=== PATIENT | female | born 1950 | race Caucasian/White ===

== ENCOUNTER 2019-11-07 15:12 | Inpatient (IN) | payer OTHER ==
[~2019-11-07] VITALS: Ht 154.9 cm; Wt 107.6 kg
[2019-11-07 13:50] VITALS: BP 141/52
--- NOTE | 2019-11-07 17:18 | NUR ---
Direct admit from [facility]. Worsening depression over last several weeks after medication changed from zoloft to effexor. Reports auditory, visual and olfactory hallucinations after med change. Last hallucination was 10/21 per pt. Also dxed with UTI. Alert and orientated X4, denies SI/HI but admits to feelings of hopelessness. Reports on episode of SI years ago when she called hotline but stated she couldn't do anything d/t two young children. Past med hx: Stage 1 breast CA txed with radiation and lumpectomy, parathyroid adenoma, Trigeminal myalgia, hysterectomy, cholesectomy, tonsilectomy. Reports ALLERGIES to PCN, liquid adhesive, baclofen and adversc reaction of hallucinations to effexor. Interactive with staff and peers. Reg gait, steady. Breath sounds clear t/o. Reg HR auxcultated. Color pink with brisk capillary refill and palpable peripheral pulses. Active bowel sounds over soft, rounded abdomen. Reports 3 loose stools in past 24 hrs r/t antibiotic. Dr. Jauregui aware. Independent with voiding. Currently in dining room eating dinner.
[2019-11-07] MEDS ORDERED: SERTRALINE HCL100 MG PO (17:50)
[2019-11-07] MEDS ORDERED: NEURONTIN 400M400 M2 PO (17:52)
[2019-11-07] MEDS ORDERED: PRAVASTATIN SOD40 MG PO (17:53)
[2019-11-07] MEDS ORDERED: LISINOPRIL2.5 MG PO (17:54)
[2019-11-07] MEDS ORDERED: CLONAZEPAM 0.50.5 M1 PO (17:55)
[2019-11-07 20:24] VITALS: BP 132/51
--- NOTE | 2019-11-07 21:45 | NUR ---
Assumed care of pt @ 1900. Went to give pt medication at 2006 this evening et pt asked what her medications were. I started explaining her medications to her et she asked about the dosing on her gabapentin. When I explained that it was 600mg, she stated that she takes 400mg. I told her that the physician has ordered the 600mg et that she was welcome to speak with the physician in the morning to make any changes that she was wanting. I told her we had her Lisinopril and her Lipitor (to which she asked what that was and I explained that it was atorvastatin) she stated that she takes pravastatin et I explained that it was probably not formulary here so was changed to atorvastatin. She stated that she was not going to take any medications that she didn't know what they were. I told her that she was well within her right to refuse her medication but that I would need to document it for the physician. At that point, she became belligerant et started screaming at this nurse. When I walked away from pt, she started following me to the nurses station et cornered one of the other nurses to berate her about this nurse. Pt states that this nurse was trying to give her medication without explaining to her what it was. I interjected that I did explain what the medications were et the patient then screamed, "I'm not talking to you. You stay out of this." Pt told other nurse that this nurse was rude, mean, stupid, et in the wrong profession. Physician button cutter was paged et informed of pt's behavior. Physician ordered Geodon 20mg IM X 1. Injection was delivered et pt did not display any signs or symptoms of adverse reaction after 30 minutes. Pt was then assessed by the charge nurse et told a different story about this nurse than she told the other nurse. Charge nurse then asked this nurse to no longer care for this patient for the rest of the noc. This nurse agreed that it would be in the pt's best interest so as not to further agitate her. Charge nurse will monitor per protocol.
[2019-11-08 09:18] VITALS: BP 130/71
--- NOTE | 2019-11-08 11:01 | NUR ---
Assumed care at 0700. Says she is not to make phone calls. Wants more clothes ie a couple of pants. Pleasant upon approach. Denies issues and concerns. Denies pain issues.
[2019-11-08 20:14] VITALS: BP 159/43
[2019-11-08 23:11] VITALS: BP 159/43
--- NOTE | 2019-11-09 02:09 | NUR ---
Assumed care of patient this pm shift. Patient very calm and cooperative. Patient stated that she had difficulty with the noc rn but that it was resolved and that she was sorry. Patient states that she does have pain in her head where apparently she had fell. Patient was given tylenol for the pain. Patient denies hi/si. Patient is alert and oriented x4. Patient is ambulatory and not a falls risk. Patients assessment shows no signs of acute distress. Patient has not displayed any negative behaviors this shift. Patient is continent of bowel and bladder. Patients affect is euthymic. We will continue to monitor per hospital policy.
[2019-11-09 07:32] VITALS: BP 117/42
--- NOTE | 2019-11-09 11:39 | NUR ---
ASSUMED CARE AT 0700 TODAY. PT. TOOK HER MORNING MEDICATIONS WITHOUT PROBLEMS NOTED. SHE WAS COOPERATIVE WITH THE ASSESSMENT. SHE TALKED ABOUT NOT BEING ABLE TO USE THE TELEPHONE AFTER BEING BELLIGERENT THE THE NIGHT NURSE. SHE IS BEING PLEASANT THIS MORNING. HRR, LUNGS CTA, ABD SOFT WITH ACTIVE BOWEL SOUNDS. SHE STATED SHE HAD 2 SMALLER FORMED BOWEL MOVEMENTS THIS MORNING. AFTER THE ASSESSMENT SHE STATED SHE WAS COMING OUT OF HER ROOM SO NOT TO UPSET THE STAFF AND DRIsra SHE ATE WELL THIS MORNING.
[2019-11-09 11:45] VITALS: BP 117/42
[2019-11-09 19:53] VITALS: BP 153/69
--- NOTE | 2019-11-09 20:19 | NUR ---
Assumed care on 11/09/19 @ 19:15, seated in the day room at a table socializing with peers. Cooperated with assessment, HRRR, Lungs CTA, ABD N x 4Q, reports soft BM after breakfast today. Reports pain of 3/10 in knees and Headache. Reports bone spurs that hurt mainly when ambulating. Will continue to monitor as per protocol for patient safety and comfort.
[2019-11-10 00:17] VITALS: BP 153/69
--- NOTE | 2019-11-10 01:56 | NUR ---
COMPLIANT WITH MEDICATION, TAKING MEDS WHOLE WITH WATER. RETIRED TO BEDROOM @ , READING A DAILY JOURNAL OF TERESA PASSAGES. IN BED AT THIS WRITING, EYES CLOSED, RESPIRATIONS EVEN AND UNLABORED. BED IN LOW POSITION, WILL CONTINUE TO MONITOR PER PROTOCOL FOR PATIENT SAFETY AND COMFORT.
--- NOTE | 2019-11-10 06:11 | NUR ---
Slept well for a total of 7.2 hours sleep.
[2019-11-10 07:52] VITALS: BP 141/51
--- NOTE | 2019-11-10 10:20 | NUR ---
0700 ASSUMED CARE OF PATIENT. 0730 PATIENT SITTING IN DAYROOM QUIETLY WATCHING TV. 0740 PATIENT FINISHED BREAKFAST. MEDICATION GIVEN WHOLE WITHOUT DIFFICULTY. PATIENT C/O PAIN TO KNEE RATE 5 ON NUMERIC PAIN SCALE. REFUSES TYLENOL AT THAT TIME. PATIENT REQUESTS ICE PACK AND STATES SHE WAS TOLD SHE COULD NOT HAVE ONE, WILL CHECK WITH DR FOR ICE PACK TO KNEE. PATIENT SITTING IN KATHY CHAIR WITH LEGS ELEVATED TO HELP WITH PAIN. WILL CONTINUE TO OBSERVE. 1025 DR PANTOJA NOTIFIED IN REGARDS TO ICE PACK. ORDER RECIEVED
--- NOTE | 2019-11-10 13:42 | NUR ---
Sw met with pt and discussed her d/c plans. She will go home tomorrow with her son 11/11/19 at 3pm. F/U will include appt with Dr Oly Ordonez at [facility].
[2019-11-10 13:57] VITALS: BP 141/51
--- NOTE | 2019-11-10 13:59 | NUR ---
SW set up appt with DR Oly Blanco for f/u [phone] (fax) [phone]. MAKI JOSEPH has provided a new pt form that pt will bring in to her walk in appt [phone] fax [phone].
--- NOTE | 2019-11-10 14:35 | NUR ---
CARTER called and confiremd that Conrado son will be picking this pt up tomorrow at 3pm. He will call when he arrives at [address] [place] [facility].
--- NOTE | 2019-11-10 16:00 | NUR ---
Pt participated in group and answered questions about assertive communication.
[2019-11-10 19:30] VITALS: BP 127/73
--- NOTE | 2019-11-10 23:41 | H ---
[facility] [place] [address] HISTORY AND PHYSICAL Name: JOSE ALEJANDRO BAEZ Room #: 520A-A ADM IN .R.#: [id number] Admission: 11/07/19 Attend Phys: Mauro Jauregui DO Discharge: Date of : 46 Report #: [id number] THIS REPORT FOR: cc: ALBERT - Family physician unknown FAM - Family physician unknown Mauro Jauregui DO ~ CC: Mauro PRICE unknown DATE OF SERVICE: 11/07/2019 INPATIENT PSYCHIATRIC EVALUATION ATTENDING PHYSICIAN: Mauro Jauregui DO. MIDDLE SCHOOL SCIENCE TEACHER: Munir Ndiaye MD REASON FOR ADMISSION: The patient referred from [facility] for worsening depression. SOURCES OF INFORMATION: Interview with the patient, chart review from [facility]. HISTORY OF PRESENT ILLNESS: A 69-year-old obese female who presented on the heating fixture tender hours of 11/07/2019 at [facility]. The patient has had a complicated week, where she had been referred by [facility] to a facility called [facility] [place] [facility] I believe. She states she left AMA there on Saturday or due to the conditions. She felt they were unsanitary. A patient was coughing on her. She had tried to get help through her PCP, but there was concern she had contracted the coronavirus. She gives me a history that within the last 6 months or so, her PCP discontinued her sertraline and started her on Effexor. What led to her [facility] admission was psychosis and feeling severely depressed. She states she was taking 150 mg twice a day of Effexor. Coronavirus-19 (SARS-CoV-2) was negative. Urinalysis showed trace leukocyte esterase and 25 white cells per high power field, red blood cells 3-5, moderate squamous epithelial cells. Culture was sent. White count was 7.0, H and H 13.6 and 41.6, and platelet count is 294. Electrolytes: Sodium 143, potassium 3.6, chloride 105, bicarbonate 26, anion gap 12, glucose 122, BUN 18, creatinine 1.0, calcium 9.6, total protein 6.9, albumin 4.4, alkaline phosphatase 68, AST 21, ALT 19, total bilirubin 0.4 and GFR, non-, 57. The patient has had longstanding depression. [facility] sent her over for placement noted from [facility] chart, agreeable to placement. Medical history is trigeminal neuralgia, hypertension. Looks like in the ER, they gave her sertraline, pravastatin, lisinopril, gabapentin, and clonazepam per the chart and home meds. Routine laboratories done. Urine drug [address] [address] HISTORY AND PHYSICAL Name: JOSE ALEJANDRO BAEZ Room #: 520A-A ADM IN M.R.#: [id number] Admission: 11/07/19 Attend Phys: Mauro Jauregui DO Discharge: Date of : 46 Report #: [id number] screen was negative. Urinalysis has already been discussed. REVIEW OF SYSTEMS: From the ER at [facility]: CONSTITUTIONAL: No fever or chills. SKIN: No rashes or braswell. EARS, NOSE, MOUTH AND THROAT: No sore throat, no nasal congestion. RESPIRATORY: No shortness of breath, no cough. CARDIOVASCULAR: No chest pain or palpitations. GASTROINTESTINAL: No abdominal pain, nausea, vomiting or diarrhea. MUSCULOSKELETAL: No muscle pain or joint pain. NEUROLOGIC: No weakness. No headache. Endorses depression and anxiety in the ER. ENDOCRINE: No heat intolerance to cold intolerance. SKIN: Warm. No petechiae. Otherwise, 10-point review of systems was negative. ALLERGIES: BACLOFEN CAUSES HEADACHE, CAUSES HYPERTROPHIC SCAR. The patient reported on 11/06/2019, she was "stating should be thrown in the river". Evidently, the patient has a son who is involved. She is quite upset about her 6-hour stay without placement, was accusing licensed master social worker for abandoning her, did not come and update her. PAST MEDICAL HISTORY: Includes asthma, hypertension, dyslipidemia, trigeminal neuralgia, multiple sclerosis though she did not mention this to me, obstructive sleep apnea, obesity, hemorrhoids, chronic diarrhea. She had a lumpectomy in 2011, laparoscopic cholecystectomy in 2014, colonoscopy 6-7 years ago in [place]. Alcohol, denied. Employment, unemployed. She states she is sexually active. Additional procedures; tonsillectomy, parathyroidectomy, cataract surgery in 2013, hysterectomy and bilateral salpingo-oophorectomy. Denies smoking. She has had a stent of her heart and she has had a right broken leg, ankle, with broken elbow reportedly. She eats a bland diet. She reports what looks like an intentional weight loss of 25 pounds in the last several months. FAMILY HISTORY: Mother is alive with breast cancer, brain tumor. Father is alive with prostate cancer and liver disease. Paternal grandmother, cancer. Maternal grandmother, had emphysema of the lung. Brother alive, heart disease. Sister alive. Paternal cousin alive with breast cancer. PHYSICAL EXAMINATION: VITAL SIGNS: Here at [facility], temperature 36.9, pulse 64, respirations 20, BP 141/52, O2 sat 95%. MUSCULOSKELETAL: Normal gait and station, obese habitus. MENTAL STATUS EXAMINATION: This is a well-developed, somewhat unkempt appearing [facility] [address] [place] [address] HISTORY AND PHYSICAL Name: RUFINOBRANNONJOSE ALEJANDRO L Room #: 520A-A [facility] IN ..#: [id number] Admission: 11/07/19 Attend Phys: Mauro Jauregui DO Discharge: Date of : 46 Report #: [id number] female appearing nearly stated age. Attention limited. Concentration is fair. Speech is normal rate, volume and tone. Thought process is linear and goal oriented. Thought content focused on ameliorating symptoms. No psychomotor agitation. No psychomotor retardation. Denied SI or HI. Denied auditory, visual, or tactile hallucinations currently, but reported them within the last week to me. Fund of knowledge average. Insight limited. Judgment limited. Memory was not formally tested. FORMULATION: A 69-year-old female transferred from [facility] for worsening depression and recent symptoms of psychosis "from Effexor" . The patient has currently failed outpatient management. DIAGNOSES: At this time, unspecified depressive disorder, numerous medical comorbidities including morbid obesity and hypertension. PLAN: Evaluate, stabilize, obtain collateral. We will start her on sertraline 50 mg oral daily, vitamin, lisinopril 10 mg p.o. at bedtime, gabapentin has been up to 600 mg p.o. at bedtime for trigeminal neuralgia, clonazepam 0.5 mg p.o. at bedtime for sleep. She has been started on Omnicef 250 mg p.o. b.i.d. by the hospitalist. I am not clear what for, looks like UTI. ESTIMATED LENGTH OF STAY: 5-7 days. STRENGTHS: She is insured. She has outpatient provider supposedly [facility]. WEAKNESSES: Multiple morbidities, poor coping skills. I would like to see how she does tomorrow, and if things resolve nicely, we will get her back to [facility] in the first few days of the business week. Above 45 minutes spent on this case. <ELECTRONICALLY SIGNED> By: Mauro Jauregui DO 11/10/19 2341 48 10 Mauro Jauregui DO /nt
--- NOTE | 2019-11-10 23:49 | NUR ---
Assumed care on 11/10/19 @ 19:15, in day room, socializing with peers and speaks to staff when aproached. Complained of a headache, and when this RN assessed her for pain level and preference on medication, became agitated, yelling and left the day room mad, returning to her bedroom. Compliant with medication, and no more behaviors noted. In bed at this writing, bed in low position, eyes closed, and respirations even and unlabored. Up occasionally to the toilet, then returns to bed. Will continue to monitor as protocol for patient safety and comfort.
[2019-11-11 02:52] VITALS: BP 127/73
--- NOTE | 2019-11-11 06:41 | NUR ---
Slept 7.6 hours overnight.
[2019-11-11 07:52] VITALS: BP 116/75
--- NOTE | 2019-11-11 12:24 | NUR ---
ASSUMED CARE AT 0700 THIS MORNING. PT. UP, DRESSED AND ON THE UNIT. SHE IS PLEASANT AND COOPERATIVE WITH THIS CHEMICAL WASTE MANAGEMENT TECHNICIAN. SHE HAS EXPRESSED DESIRE OF TAKING A SHOWER AFTER LUNCH. SHE IS TALKING WITH THE AT THIS TIME. SHE IS A&OX4. NO ACTING OUT OR AGRESSION NOTED TODAY. DENIES SI/HI AND AVH.
[2019-11-11] MEDS ORDERED: LISINOPRIL5 MG PO (13:44)
[2019-11-11] MEDS ORDERED: ZOLOFT 50 MG TA50 M1 PO (13:45)
[2019-11-11] MEDS ORDERED: CALCIUM 600 +1 EA13 PO (13:46)
[2019-11-11] MEDS ORDERED: PRENATAL PO (13:46)
--- NOTE | 2019-11-11 23:41 | D ---
[facility] [place] [address] DISCHARGE SUMMARY Name: JOSE ALEJANDRO BAEZ Room #: 520A-A [facility] IN ..#: [id number] Admission: 11/07/19 Attend Phys: Mauro Jauregui DO Discharge: 11/11/19 Date of : 46 Report #: [id number] THIS REPORT FOR: cc: ALBERT - Family physician unknown FAM - Family physician unknown Mauro Jauregui DO ~ THIS REPORT FOR: //name// CC: Mauro PRICE unknown DATE OF SERVICE: 11/11/2019 ATTENDING PSYCHIATRIST: Mauro Jauregui DO. SILVERWARE ASSEMBLER: Nino Sweeney MD DISCHARGE DIAGNOSES: Major depressive disorder, unspecified degree; borderline personality traits; morbid obesity; hypertension; hyperlipidemia; alopecia; urinary tract infection, on Ceftin. DISCHARGE MEDICATIONS: The patient will need script for sertraline 50 mg p.o. daily, Rx given for #30. Otherwise, she should continue lisinopril 10 mg p.o. at bedtime, calcium carbonate with vitamin D3 one tab p.o. 3 times a day, vitamin p.o. daily for supplementation, gabapentin 400 mg p.o. at bedtime for sleep and pain, pravastatin 40 mg p.o. at bedtime for hyperlipidemia, clonazepam 0.5 mg p.o. at bedtime for sleep. DISCHARGE PLAN: She is discharging to her home she shares with her son in [place], [place]. ACTIVITY LEVEL: As tolerated. No alcohol, no illicit drugs. Aftercare is as follows, set up an appointment with Dr. Oly Blanco, PCP. Also will need to go to a [facility]. She was given a new patient form to fill out and then just walk in [facility] in [place]. Laboratories were done at [facility] where she was sent from, so we did not get any on this admission or need any. REASON FOR ADMISSION: Back on 11/06, rather complicated story but she had been referred by [facility] to [facility] ER for placement for psychiatric crisis. There were alleged suicidal ideations. The patient had recently left I Saturday of the week prior against medical advice. Apparently, she was concerned she would catch COVID from someone there ____ cough on her. Complicating things were medication changes the PCP had done, [facility] [address] [place] [address] DISCHARGE SUMMARY Name: JOSE ALEJANDRO BAEZ Bridgette Room #: 520A-A [facility] IN ..#: [id number] Admission: 11/07/19 Attend Phys: Mauro Jauregui DO Discharge: 11/11/19 Date of : 46 Report #: [id number] switching her from sertraline to Effexor and she claimed she had a psychotic reaction immediately prior to her [facility] admission. HOSPITAL COURSE: The patient was admitted to Geriatric Psychiatry Unit. Initially, she was more open to things. The patient became irritable and alleged that she was not getting help she needed. Also, there was a peer that had eliminated appropriately in her room, which did not help things. The main medication change was moving her to sertraline 50 mg in the a.m. The patient was not suicidal or homicidal on the day of discharge. PHYSICAL EXAMINATION: VITAL SIGNS: On the day of discharge are as follows: Temperature 36.7, pulse 69, respirations 14, BP 116/75, O2 sat 93%. MUSCULOSKELETAL: Normal gait and station. Obese body habitus. MENTAL STATUS EXAMINATION: This is a well-developed, obese female appearing stated age. Attention fair. Concentration fair. Speech is normal rate, volume and tone. Thought process is linear and goal directed. Thought content focused on discharging and not focusing on treatment she has received during this hospitalization. No SI, no HI, some helplessness, no hopelessness. Denied auditory, visual, or tactile hallucinations. Memory not formally tested. Insight limited. Judgment fair to limited. Fund of knowledge average. Prognosis for this patient is guarded and will depend on her followup in my opinion towards developing better coping skills. Also the patient was offered family meeting with her son this admission, which she declined. She lives with him. <ELECTRONICALLY SIGNED> By: Mauro Jauregui DO 11/11/19 2341 23 43 Mauro Jauregui DO /nt
== END 2019-11-11 14:50 | disposition home or self-care (01) | DRG 881 ==
LOC: SBH 15:12
PROVIDERS: ADMIT Psychiatry & Neurology Psychiatry; ATTEND Psychiatry & Neurology Psychiatry
DX: F32.9 Major depressive disorder, single episode, unspecified (principal); Z68.41 Body mass index [BMI] 40.0-44.9, adult; N39.0 Urinary tract infection, site not specified; R45.851 Suicidal ideations; E66.01 Morbid (severe) obesity due to excess calories; L65.9 Nonscarring hair loss, unspecified; I10 Essential (primary) hypertension; E78.5 Hyperlipidemia, unspecified; G47.33 Obstructive sleep apnea (adult) (pediatric); J45.909 Unspecified asthma, uncomplicated; G35 Multiple sclerosis; G50.0 Trigeminal neuralgia; Z79.899 Other long term (current) drug therapy; Z88.8 Allergy status to other drugs, medicaments and biological substances; Z90.49 Acquired absence of other specified parts of digestive tract; Z90.710 Acquired absence of both cervix and uterus; Z80.3 Family history of malignant neoplasm of breast
CPT/HCPCS: 10880